=== PATIENT | male | born 1965 | race Caucasian/White ===

== ENCOUNTER → 2021-10-10 06:57 | Outpatient (CLI) | payer OTHER, SELFPAY ==
--- NOTE | ~2021-10-10 | MR_ITS ---
EXAMINATION: MR cervical spine wo con DATE: 10/10/2021 07:39 INDICATION: Neck pain TECHNIQUE: Magnetic resonance imaging (MRI) of the cervical spine was performed without intravenous c ontrast. Sequences included sagittal T2-weighted FSE, sagittal T2-weighted FS FSE, sagittal T1-weight ed FSE, axial MERGE and axial T2-weighted FSE. COMPARISON: None FINDINGS: Slight reversal of the normal cervical lordosis. No spondylolisthesis. Vertebral body heights are nor mal. Moderate disc height loss with fibrofatty degenerative endplate changes at C6-C7. Mild disc heig ht loss at C5-C6. Mild disc desiccation without disc height loss at C2-C3 through C4-C5 and at T1-T2. T1 hyperintense hemangioma at the T1 vertebral body. Bone marrow signal intensity is otherwise kimberly l. Cord signal intensity is normal. Large mucous retention cyst in the right maxillary sinus. Cervica l soft tissues are unremarkable. The following disc levels are specifically discussed: C2-C3: The disc does not extend beyond the endplate margin. There is mild bilateral uncovertebral donita nt osteoarthritis. There is moderate bilateral facet joint osteoarthritis. There is mild bilateral ne ural foraminal stenosis. There is no central canal stenosis. C3-C4: The disc does not extend beyond the endplate margin. There is mild bilateral uncovertebral donita nt osteoarthritis. There is mild bilateral facet joint osteoarthritis. There is mild bilateral neural foraminal stenosis. There is no central canal stenosis. C4-C5: The disc does not extend beyond the endplate margin. There is mild right and mild to moderate left uncovertebral joint osteoarthritis. There is mild to moderate bilateral facet joint osteoarthrit is. There is mild left and moderate right neural foraminal stenosis. There is central canal stenosis. C5-C6: The disc does not extend beyond the endplate margin. There is mild to moderate right and moder ate left uncovertebral joint osteoarthritis. There is mild bilateral facet joint osteoarthritis. Ther e is mild left and mild to moderate right neural foraminal stenosis. There is no central canal stenos is. C6-C7: The disc does not extend beyond the endplate margin. There is severe bilateral uncovertebral j oint osteoarthritis. There is mild bilateral facet joint osteoarthritis. There is mild left and mild to moderate right neural foraminal stenosis. There is no central canal stenosis. C7-T1: The disc does not extend beyond the endplate margin. There is mild bilateral uncovertebral donita nt osteoarthritis. There is moderate bilateral facet joint osteoarthritis. There is minimal bilateral neural foraminal stenosis. There is no central canal stenosis. IMPRESSION: 1. Moderate cervical spondylosis. Reviewed, dictated and finalized at location A.
== END ==
DX: M47.813 Spondylosis without myelopathy or radiculopathy, cervicothoracic region (principal); M48.03 Spinal stenosis, cervicothoracic region
CPT/HCPCS: 72141

== ENCOUNTER 2022-06-10 18:26 | Emergency (ER) | payer OTHER, SELFPAY ==
[2022-06-10 18:37] VITALS: BP 145/78; PULSE 64; RESP 16; TEMP 36.6; O2SAT 99
--- NOTE | 2022-06-10 20:56 | ED.URI ---
HPI - URI/Sore Throat General Chief Complaint: Upper Respiratory Infection Stated Complaint: Sore Throat Time Seen by Provider: 06/10/22 20:50 Source: patient, RN notes reviewed and old records reviewed Mode of arrival: ambulatory Limitations: no limitations History of Present Illness HPI Narrative: 57 year old male who presents to [facility] care with complaints of 3 day history of sore throat with no fever noted. Patient rports that he has some sinus drainage but denies any cough or headache pain. Patient has not taken any OTC medication for his symptoms. Patient reports that daughter is also experiencing sore throat. MD elicited complaint: sore throat and rhinorrhea Onset (ago): day(s) (3) Able to tolerate fluids by mouth: Yes Treatments prior to arrival: none Related Data Home Medications Medication Instructions Recorded Confirmed No Home Medications 06/10/22 06/10/22 Allergies Allergy/AdvReac Type Severity Reaction Status Date / Time No Known Allergies Allergy Verified 06/10/22 19:42 Review of Systems Review of Systems: CONSTITUTIONAL: Denies malaise, chills, sweats, or fever. EYES: Denies visual changes, redness, or discharge. ENT: Reports rhinorrhea, congestion,no sinus pain, no otalgia positive for sore throat. CARDIOVASCULAR: Denies chest pain, palpitations, or edema. RESPIRATORY: Reports no cough.? Denies dyspnea. GASTROINTESTINAL: Denies abdominal pain, nausea, vomiting, diarrhea SKIN: Denies rash or itching. MUSCULOSKELETAL: Denies myalgia. NEUROLOGIC: Denies headache. All systems reviewed & are unremarkable except as noted in HPI and below PMFSH Social History Social History (Updated 06/14/22 @ 11:00 by Indira Tiwari NP) Smoking status: Never smoker Alcohol intake: current Alcohol use details: rare Substance use: never Living arrangements: with family Gender identity (if verbalized by the patient): Male Comments At time of signature, agree with nursing past medical, surgical, social and family history. There is no relevant family history pertinent to the presenting complaint Exam Narrative: GENERAL: Well-appearing, well-nourished, and in no acute distress. HEAD: Normocephalic EYES: PERRLA, conjunctivae clear ENT: Nares clear, turbinates edematous and erythematous, clear discharge. Mucous membranes moist. TM pearly flores with dull light reflex bilaterally; no tragal tenderness. Oropharynx erythematous without lesions. Tonsils red,not enlarged and without exudate, no drooling, no hoarseness, no trismus, uvula midline.some post nasal drainage NECK: Supple. No lymphadenopathy CHEST: Clear to auscultation, breath sounds equal. No wheezing, rhonchi, rales, or stridor. No respiratory distress, speaks in full sentences.SAO2 99% on room air HEART: Regular rate and rhythm. No murmur heard. SKIN: Warm, dry, no rash. NEURO: Alert and oriented x3. PSYCH: Normal mood and affect Course Course Emergency Course: Patient is aware of diagnosis, understands and agrees to treatment plan.? Anticipatory guidance given.? Patient agrees to follow-up as directed and is aware of reasons to seek care at the emergency department. Portions of this record may have been created with voice recognition software Level of Care: Express Care Visit Vital Signs Vital signs: Vital Signs Temperature 36.6 C 06/10/22 18:37 Pulse Rate 64 06/10/22 18:37 Respiratory Rate 16 06/10/22 18:37 Blood Pressure 145/78 H 06/10/22 18:37 Pulse Oximetry 99 06/10/22 18:37 Oxygen Delivery Room Air 06/10/22 18:37 Temperature 36.6 C 06/10/22 18:37 Pulse Rate 64 06/10/22 18:37 Respiratory Rate 16 06/10/22 18:37 Blood Pressure 145/78 H 06/10/22 18:37 Pulse Oximetry 99 06/10/22 18:37 Oxygen Delivery Room Air 06/10/22 18:37 Reviewed MDM - URI/Sore Throat MDM Narrative Medical decision making narrative: Differential diagnosis considered: Vickers virus, str
== END 2022-06-10 21:00 | disposition home or self-care (01) ==
PROVIDERS: Emergency Provider Registered Nurse; PCP Physician Assistant
DX: J06.9 Acute upper respiratory infection, unspecified (principal); J02.9 Acute pharyngitis, unspecified
CPT/HCPCS: 87081; 87880; 99203; G0463

== ENCOUNTER 2024-03-15 12:46 | Emergency (ER) | payer OTHER, SELFPAY ==
--- NOTE | ~2024-03-15 | XR_ITS ---
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 RESULT: Lines, tubes, and devices: None. Lungs and pleura: Clear. Cardiomediastinal silhouette: Calcified lymph node, otherwise unremarkable. Other: No acute osseous or upper abdominal finding. Presumed chronic or physiologic mild anterior we dge deformity at L1. IMPRESSION: No acute cardiopulmonary process. Reviewed, dictated and finalized at location K. A THEORIST AND AUTHOR OF
[2024-03-15 12:58] VITALS: BP 165/91; PULSE 61; RESP 16; TEMP 37.2; O2SAT 99
--- NOTE | 2024-03-15 14:44 | ED.GENADULT ---
HPI - General Adult General Chief complaint: Upper Respiratory Infection Stated complaint: Sore Throat/Congestion/Cough Source: patient Mode of arrival: ambulatory Limitations: no limitations History of Present Illness HPI narrative: Patient presents for evaluation of sick symptoms for last week. Symptoms include sore throat, nasal congestion, thick green nasal drainage, and productive cough of green sputum. No fever, chills, nausea, vomiting or diarrhea. No recent sick contacts to his knowledge. He does not smoke. He tried taking DayQuil, NyQuil and other OTC cough and cold medications for his symptoms. Related Data Home Medications ?Medication ?Instructions ?Recorded ?Confirmed ?Last Taken ?Type No Home Medications 06/10/22 06/10/22 Unknown History Allergies Allergy/AdvReac Type Severity Reaction Status Date / Time No Known Allergies Allergy Verified 03/15/24 14:01 Review of Systems Review of Systems: CONSTITUTIONAL: Denies fever, chills, or sweats. EYES: Denies visual changes, redness, or discharge. ENT: Reports sinus congestion, green nasal drainage and sore throat.. CARDIOVASCULAR: Denies chest pain, palpitations, or edema. RESPIRATORY: Reports cough. Denies shortness of breath GASTROINTESTINAL: Denies abdominal pain, nausea, vomiting, or diarrhea. GENITOURINARY: Denies dysuria or hematuria. SKIN: Denies rash or itching. MUSCULOSKELETAL: Denies back pain, joint pain, or myalgia. NEUROLOGIC: Denies headache, numbness, dizziness, or weakness. PSYCHIATRIC: Denies anxiety or depression. PMFSH Past Medical History Medical History No pertinent past medical history Surgical History Surgical History No pertinent past surgical history Family History Family History (Updated 03/15/24 @ 14:53 by MARY Portillo, ) Mother Family history non-contributory Social History Social History Smoking status: Never smoker Alcohol intake: current Alcohol use details: rare Substance use: never Living arrangements: with family Gender identity (if verbalized by the patient): Male Exam Narrative: GENERAL: Well-appearing, well-nourished, and in no acute distress. HEAD: Normocephalic, atraumatic. EYES: PERRLA and EOMI. ENT: Nares clear, no rhinorrhea or epistaxis. Mucous membranes moist. Oropharynx without tonsillar hypertrophy exudate or other lesions. Bilateral TMs pearly flores nonbulging NECK: Supple. No adenopathy or masses. No carotid bruits or JVD CHEST: Clear to auscultation. No respiratory distress. No wheezes rales or rhonchi HEART: Regular rate and rhythm. No murmur heard. Normal peripheral pulses. ABDOMEN: Soft, nontender, nondistended, normal active bowel sounds. EXTREMITIES: Normal range of motion. No edema. SKIN: Warm, dry, no rash. NEURO: No focal deficits. Alert and oriented x3. PSYCH: Normal mood and affect. Course Course Emergency Course: This is a 58-year-old male who presented for evaluation of sick symptoms. Chest x-ray was normal. He meets criteria for bacterial sinusitis. Will discharge with Augmentin. Increase hydration. [id number] agents for symptom management. Follow up with primary provider. Go to the ER for worsening symptoms. Patient in agreement with plan of care. Level of Care: Express Care Visit Vital Signs Vital signs: Vital Signs Temperature 37.2 C 03/15/24 12:58 Pulse Rate 61 03/15/24 12:58 Respiratory Rate 16 03/15/24 12:58 Blood Pressure 165/91 H 03/15/24 12:58 Pulse Oximetry 99 03/15/24 12:58 Oxygen Delivery Room Air 03/15/24 12:58 Temperature 37.2 C 03/15/24 12:58 Pulse Rate 61 03/15/24 12:58 Respiratory Rate 16 03/15/24 12:58 Blood Pressure 165/91 H 03/15/24 12:58 Pulse Oximetry 99 03/15/24 12:58 Oxygen Delivery Room Air 03/15/24 12:58 Medical Decision Making Vital Signs Vital Signs: Vital Signs Temperature 37.2 C 03/15/24 12:58 Pulse Rate 61 03/15/24 12:58 Respiratory Rate 16 03/15/24 12:58 Blood Pressure 165/91 H 03/15/24 12:58 Pulse Oximetry 99 03/15/24 12:58 Oxygen Delivery Room Air 03/15/24 12:58 Temperature 37.2 C 03/15/24 12:58 Pulse Rate 61 03/15/24 12:58 Respiratory Rate 16 03/15/24 12:58 Blood Pressure 165/91 H 03/15/24 12:58 Pulse Oximetry 99 03/15/24 12:58 Oxygen Delivery Room Air 03/15/24 12:58 Imaging Data Radiologist's impression: EXAMINATION: XR chest 2V Exam Date/Time: 03/15/2024 14:40 [employer]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 RESULT: Lines, tubes, and devices: None. Lungs and pleura: Clear. Cardiomediastinal silhouette: Calcified lymph node, otherwise unremarkable. Other: No acute osseous or upper abdominal finding. Presumed chronic or physiologic mild anterior wedge deformity at L1. IMPRESSION: No acute cardiopulmonary process. Discharge Plan Discharge Clinical Impression: Sinusitis Patient Disposition: Home, Self-Care Condition: Stable Instructions: Antibiotic Form, Sinusitis (ED) Patient Language: Belarusian Prescriptions: New amoxicillin-pot clavulanate 875-125 mg tablet 1 tablet PO Q12H Qty: 20 0RF No Action No Home Medications Follow-up/Referrals: Ruddy,DYLAN Mejia [Primary Care Provider] - Time of Disposition: 15:11
--- OUTSIDE RECORDS SUMMARY | 2024-03-22 10:18 | XMS_ITS | Clinical Summary ---
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 20 Tab 10/06/2016 Active Family History Medical History Relation Name Comments Hypertension Father No Known Problems Mother Relation Name Status Comments Father Alive Mother Alive Social History Tobacco Use Types Packs/Day Years Used Date Smoking Tobacco: Never Alcohol Use Standard Drinks/Week Comments No 0 (1 standard drink = 0.6 oz pur e alcohol) Sex and Gender Information Value Date Recorded Sex Assigned at Not on file Legal Sex Male 8:43 PM CDT Gender Identity Not on file Sexual Orientation Not on file Last Filed Vital Signs Vital Sign Reading Time Taken Comments Blood Pressure 122/72 10/06/2016 10:03 AM CDT Pulse 62 10/06/2016 10:03 AM CDT Temperature 36 ??C (96.8 ??F) 10/06/2016 10:03 AM CDT Respiratory Rate 18 10/06/2016 10:03 AM CDT Oxygen Saturation 98% 10/06/2016 10:03 AM CDT Inhaled Oxygen Concentration - - Weight 84 kg (185 lb 3.2 oz) 10/06/2016 10:03 AM CDT Height 175.3 cm (5' 9 ) 10/06/2016 10:03 AM CDT Body Mass Index 27.35 10/06/2016 10:03 AM CDT Plan of Treatment Health Maintenance Due Date Last Done Comments Hepatitis C Virus (HCV) Screening 1965 TdaP Immunization 1965 Hepatitis B Immunization (1 of 3 - 19+ 3-dose series) 1984 Colonoscopy 2010 Colorectal Cancer Screening 2010 Cologuard 2015 Immunochemical Fecal Occult Blood 2015 Pneumococcal Immunization (5 0+ years) (1 of 1 - PCV) 2015 Zoster Immunization (1 of 2) 2015 PSA Discussion 2020 Influenza Immunization (#1) 2023 SARS-COV-2 Immunization (1 - season) 2023 Respiratory Syncytial Virus (RSV) Immunization (Adult) (1 - 1-dose 75+ series) 2040 Meningococcal Immunization (ACWY) Aged Out No longer eligible based on patient's age to complete this topic Pneumococcal Immunization Combined Aged Out No longer eligible based on patient's age to complete this topic Rotavirus Immunization Aged Out No lo nger eligible based on patient's age to complete this topic Insurance Care Teams Piped Pocket Machine Operator Relationship Specialty Start Date End Date Provider, None [place] PCP - General 08/28/20
--- OUTSIDE RECORDS SUMMARY | 2024-03-22 10:18 | XMS_ITS | Data Portability ---
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 Plan of Treatment Reminders Order Date Submit Date Provider Last Modified By Organization Details Last Modified Time Details Appointments None recorded. Lab CBC 2021 022 [place] EBONY, [facility], [facility] [address], [place], [address], 2 09:14:25 CMP, serum or plasma 2021 022 TYNAN EBONY, [address] [place] [address], [address], [place], [address], 2 09:14:24 lipid panel, serum 2021 022 TYNAN LABDURAN, [facility], [facility] [address], [place], [address], 2 09:14:25 CMP, serum or plasma 2023 024 TYNAN LABCO, [address] [place] [address], [address], [place], [address], 4 09:14:49 lipid panel, serum 2023 024 [facility] [address] [place] [address], [address], [place], [address], 4 09:14:48 Referral hand surgeon referral 2023 024 debbie Rose MD, 2 [facility] , [address], [address], 4 11:53:17 Procedures None recorded. Surgeries None recorded. Imaging None recorded. Medication Orders Cipro 500 mg tablet 2021 022 [facility], [address] [place] [address], [address], 4 16:32:44 metronidaz ole 500 mg tablet 2021 022 [facility], [address] [place] [address], [address], 4 16:32:41 Medrol (Basilio) 4 mg tablets in a dose pack 2022 023 [facility], [address] [place] [address], [address], 4 16:03:32 Depo-Medro l 80 mg/mL suspension for injection 2022 023 [facility] Not available 4 16:03:34 amoxicilli n 875 mg tablet 2023 024 [facility], [address] [place] [address], [address], 4 16:32:46 Medrol (Basilio) 4 mg tablets in a dose pack 2023 024 [facility], [address] [place] [address], [address], 4 16:46:33 Patient TargetsNo targets recorded. Patient Instructions Encounter Date Encounter Id Patient Instructions Last Modified By Organization Details Last Modified Time 07/16/2021 [id number] learning about healthy weight jnanney Not available 07/16/2021 17:21:22 diverticulitis: care instructions jnanney Not available 07/16/2021 17:21:23 learning about diverticulosis and diverticulitis jnanney Not available 07/16/2021 17:21:23 10/09/2022 [id number] A healthy lifestyle: care instructions jnanney Not available 10/09/2022 16:41:38 04/27/2023 [id number] A healthy lifestyle: care instructions jnanney Not available 04/27/2023 16:17:55 06/21/2023 [id number] A healthy lifestyle: care instructions jnanney Not available 06/21/2023 16:45:45 Reason for Referral Hand Surgeon Referral for Tr igger thumb of right hand Referring Physician: Carlos Fox, Family Medicine, Encounter Date: 06/21/2023 Results Created Date Observation Date Name Description Value Unit Range Abnormal Flag Note LastModifiedBy Organization Detail LastModifiedTime 09/20/19 22 09/20/2021 COMP. METAB OLIC PANEL (14) glucose 73 mg/dL 65-99 Not Available [facility] ([facility]) [address] [place], [address], 09/20/2021 09:14:24 09/20/19 22 09/20/2021 COMP. METAB OLIC PANEL (14) BUN 13 mg/dL 6-24 Not Available [facility] ([facility]) [address] [place], [address], 09/20/2021 09:14:24 09/20/19 22 09/20/2021 COMP. METAB OLIC PANEL (14) creatinine 1.20 mg/dL 0.76-1 .27 Not Available [facility] ([facility]) [address] [place], [address], 09/20/2021 09:14:24 09/20/19 22 09/20/2021 COMP. METAB OLIC PANEL (14) eGFR 71 mL/mi n/1.7 3 >59 Not Available [facility] ([facility]) [address] [place], [address], 09/20/2021 09:14:24 09/20/19 22 09/20/2021 COMP. METAB OLIC PANEL (14) BUN/creatini ne ratio 11 9-20 Not Available [facility] ([facility]) [address] [facility], [place], [address], 09/20/2021 09:14:24 09/20/19 22 09/20/2021 COMP. METAB OLIC PANEL (14) sodium 143 mmol/ L 134-14 4 Not Available [facility] ([facility]) [address] [facility] [place], [address], 09/20/2021 09:14:24 09/20/19 22 09/20/2021 COMP. METAB OLIC PANEL (14) potassium 5.0 mmol/ L 3.5-5. 2 Not Available [facility] ([facility]) [address] [facility] [place], [address], 09/20/2021 09:14:24 09/20/19 22 09/20/2021 COMP. METAB OLIC PANEL (14) chloride 103 mmol/ L 96-106 Not Available [facility] ([facility]) [address] [facility] [place], [address], 09/20/2021 09:14:24 09/20/19 22 09/20/2021 COMP. METAB OLIC PANEL (14) carbon dioxide, total 28 mmol/ L 20-29 Not Available [facility] ([facility]) [address] [facility] [place], [address], 09/20/2021 09:14:24 09/20/19 22 09/20/2021 COMP. METAB OLIC PANEL (14) calcium 9.4 mg/dL 8.7-10 .2 Not Available [facility] ([facility]) [address] [facility] [place], [address], 09/20/2021 09:14:24 09/20/19 22 09/20/2021 COMP. METAB OLIC PANEL (14) protein, total 7.1 g/dL 6.0-8. 5 Not Available [facility] ([facility]) [address] [place], [address], 09/20/2021 09:14:24 09/20/19 22 09/20/2021 COMP. METAB OLIC PANEL (14) albumin 4.5 g/dL 3.8-4. 9 Not Available [facility] ([facility]) [address] [place], [address], 09/20/2021 09:14:24 09/20/19 22 09/20/2021 COMP. METAB OLIC PANEL (14) globulin, total 2.6 g/dL 1.5-4. 5 Not Available [facility] ([facility]) [address] [place], [address], 09/20/2021 09:14:24 09/20/19 22 09/20/2021 COMP. METAB OLIC PANEL (14) A/G ratio 1.7 1.2-2. 2 Not Available [facility] ([facility]) [address] [place], [address], 09/20/2021 09:14:24 09/20/19 22 09/20/2021 COMP. METAB OLIC PANEL (14) bilirubin, total 0.4 mg/dL 0.0-1. 2 Not Available [facility] ([facility]) [address] [place], [address], 09/20/2021 09:14:24 09/20/19 22 09/20/2021 COMP. METAB OLIC PANEL (14) alkaline phosphatase 53 IU/L 44-121 Not Available [facility] ([facility]) [address] [place], [address], 09/20/2021 09:14:24 09/20/19 22 09/20/2021 COMP. METAB OLIC PANEL (14) AST (SGOT) 16 IU/L 0-40 Not Available [facility] ([facility]) [address] [facility], [place], [address], 09/20/2021 09:14:24 09/20/19 22 09/20/2021 COMP. METAB OLIC PANEL (14) ALT (SGPT) 17 IU/L 0-44 Not Available [facility] ([facility]) [address] [facility], [place], [address], 09/20/2021 09:14:24 09/20/19 22 09/20/2021 CBC, PLATE LET, NO DIFFE RENTI AL WBC 5.8 x10e3 /uL 3.4-10 .8 Not Available [facility] ([facility]) [address] [facility], [place], [address], 09/20/2021 09:14:24 09/20/19 22 09/20/2021 CBC, PLATE LET, NO DIFFE RENTI AL RBC 5.15 x10e6 /uL 4.14-5 .80 Not Available [facility] ([facility]) [address] [facility], [place], [address], 09/20/2021 09:14:24 09/20/19 22 09/20/2021 CBC, PLATE LET, NO DIFFE RENTI AL hemoglobin 14.8 g/dL 13.0-1 7.7 Not Available [facility] ([facility]) [address] [facility], [place], [address], 09/20/2021 09:14:24 09/20/19 22 09/20/2021 CBC, PLATE LET, NO DIFFE RENTI AL hematocrit 43.3 % 37.5-5 1.0 Not Available [facility] ([facility]) [address] [facility], [place], [address], 09/20/2021 09:14:24 09/20/19 22 09/20/2021 CBC, PLATE LET, NO DIFFE RENTI AL MCV 84 fL 79-97 Not Available [facility] ([facility]) [address] [facility], [place], [address], 09/20/2021 09:14:24 09/20/19 22 09/20/2021 CBC, PLATE LET, NO DIFFE RENTI AL MCH 28.7 pg 26.6-3 3.0 Not Available [facility] ([facility]) [address] [facility], [place], [address], 09/20/2021 09:14:24 09/20/19 22 09/20/2021 CBC, PLATE LET, NO DIFFE RENTI AL MCHC 34.2 g/dL 31.5-3 5.7 Not Available [facility] ([facility]) [address] [facility], [place], [address], 09/20/2021 09:14:24 09/20/19 22 09/20/2021 CBC, PLATE LET, NO DIFFE RENTI AL RDW 13.9 % 11.6-1 5.4 Not Available [facility] ([facility]) [address] [facility], [place], [address], 09/20/2021 09:14:24 09/20/1909/20/2021 CBC, PLATE LET, NO DIFFE RENTI AL platelets 223 x10e3 /uL 150-45 0 Not Available [facility] ([facility]) [address] 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, [place], [address], 09/20/2021 09:14:24 09/20/19 22 09/20/2021 LIPID PANEL cholesterol, total 236 mg/dL 100-19 9 above high normal Not Available [facility] ([facility]) [address] [place], [address], 09/20/2021 09:14:25 09/20/19 22 09/20/2021 LIPID PANEL triglyceride s 345 mg/dL 0-149 above high normal Not Available [facility] ([facility]) [address] [facility] [place], [address], 09/20/2021 09:14:25 09/20/19 22 09/20/2021 LIPID PANEL HDL cholesterol 36 mg/dL >39 below low normal Not Available [facility] ([facility]) [address] [facility] [place], [address], 09/20/2021 09:14:25 09/20/19 22 09/20/2021 LIPID PANEL VLDL cholesterol elizabet 63 mg/dL 5-40 above high normal Not Available [facility] ([facility]) [address] [facility] [place], [address], 09/20/2021 09:14:25 09/20/19 22 09/20/2021 LIPID PANEL LDL chol calc ([facility]) 137 mg/dL 0-99 above high normal Not Available [facility] ([facility]) [address] [facility] 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 [place], [address], 09/20/2021 09:14:25 09/20/19 22 09/20/2021 CARDI OVASC ULAR REPOR T interpretati on Note Suppl emjazmine al repor t is avail able. Not Available [facility] ([facility]) [address] [facility] [place], [address], 09/20/2021 09:14:26 09/20/19 22 09/20/2021 CARDI OVASC ULAR REPOR T pdf . Not Available [facility] ([facility]) [address] [place], [address], 09/20/2021 09:14:26 04/27/19 24 04/28/2023 LIPID PANEL cholesterol, total 211 mg/dL 100-19 9 above high normal Not Available [address], [address], 04/28/2023 09:14:48 04/27/19 24 04/28/2023 LIPID PANEL triglyceride s 457 mg/dL 0-149 above high normal Not Available [address], [address], 04/28/2023 09:14:48 04/27/19 24 04/28/2023 LIPID PANEL HDL cholesterol 28 mg/dL >39 below low normal Not Available [address], [address], 04/28/2023 09:14:48 04/27/19 24 04/28/2023 LIPID PANEL VLDL cholesterol elizabet 78 mg/dL 5-40 above high normal Not Available [address], [address], 04/28/2023 09:14:48 04/27/19 24 04/28/2023 LIPID PANEL LDL chol calc (nih) 105 mg/dL 0-99 above high normal Not Available [address], [address], 04/28/2023 09:14:48 04/27/19 24 04/28/2023 COMP. METAB OLIC PANEL (14) glucose 79 mg/dL 70-99 Not Available [address], [address], 04/28/2023 09:14:49 04/27/19 24 04/28/2023 COMP. METAB OLIC PANEL (14) BUN 13 mg/dL 6-24 Not Available [address], [address], 04/28/2023 09:14:49 04/27/19 24 04/28/2023 COMP. METAB OLIC PANEL (14) creatinine 1.08 mg/dL 0.76-1 .27 Not Available [address], [address], 04/28/2023 09:14:49 04/27/19 24 04/28/2023 COMP. METAB OLIC PANEL (14) eGFR 80 mL/mi n/1.7 3 >59 Not Available [address], [address], 04/28/2023 09:14:49 04/27/19 24 04/28/2023 COMP. METAB OLIC PANEL (14) BUN/creatini ne ratio 12 9-20 Not Available [address], [address], 04/28/2023 09:14:49 04/27/19 24 04/28/2023 COMP. METAB OLIC PANEL (14) sodium 141 mmol/ L 134-14 4 Not Available [address], [address], 04/28/2023 09:14:49 04/27/19 24 04/28/2023 COMP. METAB OLIC PANEL (14) potassium 4.4 mmol/ L 3.5-5. 2 Not Available [address], [address], 04/28/2023 09:14:49 04/27/19 24 04/28/2023 COMP. METAB OLIC PANEL (14) chloride 103 mmol/ L 96-106 Not Available [address], [address], 04/28/2023 09:14:49 04/27/19 24 04/28/2023 COMP. METAB OLIC PANEL (14) carbon dioxide, total 25 mmol/ L 20-29 Not Available [address], [address], 04/28/2023 09:14:49 04/27/19 24 04/28/2023 COMP. METAB OLIC PANEL (14) calcium 9.3 mg/dL 8.7-10 .2 Not Available [address], [address], 04/28/2023 09:14:49 04/27/19 24 04/28/2023 COMP. METAB OLIC PANEL (14) protein, total 7.1 g/dL 6.0-8. 5 Not Available [address], [address], 04/28/2023 09:14:49 04/27/19 24 04/28/2023 COMP. METAB OLIC PANEL (14) albumin 4.6 g/dL 3.8-4. 9 Not Available [address], [address], 04/28/2023 09:14:49 04/27/19 24 04/28/2023 COMP. METAB OLIC PANEL (14) globulin, total 2.5 g/dL 1.5-4. 5 Not Available [address], [address], 04/28/2023 09:14:49 04/27/19 24 04/28/2023 COMP. METAB OLIC PANEL (14) A/G ratio 1.8 1.2-2. 2 Not Available [address], [address], 04/28/2023 09:14:49 04/27/19 24 04/28/2023 COMP. METAB OLIC PANEL (14) bilirubin, total 0.3 mg/dL 0.0-1. 2 Not Available [address], [address], 04/28/2023 09:14:49 04/27/19 24 04/28/2023 COMP. METAB OLIC PANEL (14) alkaline phosphatase 50 IU/L 44-121 Not Available [address], [address], 04/28/2023 09:14:49 04/27/19 24 04/28/2023 COMP. METAB OLIC PANEL (14) AST (SGOT) 19 IU/L 0-40 Not Available [address], [address], 04/28/2023 09:14:49 04/27/19 24 04/28/2023 COMP. METAB OLIC PANEL (14) ALT (SGPT) 18 IU/L 0-44 Not Available [address], [address], 04/28/2023 09:14:49 04/27/19 24 04/28/2023 CARDI OVASC ULAR REPOR T interpretati on Note Suppl emjazmine al repor t is avail able. Not Available [address], [address], 04/28/2023 09:14:50 04/27/19 24 04/28/2023 CARDI OVASC ULAR REPOR T pdf . Not Available [address], [address], 04/28/2023 09:14:50 03/15/1903/15/2024 XR, chest No observ ation record ed. [email or web address] Bueno [facility] [address], [place], [address], 03/16/2024 08:42:05 Result Notes None recorded. Problems Name Problem SNOMED Code Status Onset Date Resolution Date Notes Provider Name and Address Organization Details Recorded Time Left lower quadrant pain 064885525 Active Tasha Tapia MA null, [facility] 6 16:28:26 Contact dermatitis 11230920 Active Tasha Tapia MA null, [facility] 16:28:26 Acute pharyngitis 273503699 Active BRIANNA Claudio, [facility] 16:28:26 Dermatophytosi s 24727895 Active Carlos Fox PA-C Attn: Ga alvarez,[address] [facility], [place], [address], [facility] 16:37:28 Problem Notes None recorded. Procedures Surgical History Date Name Laterality Status Provider Name and Address Organization Details Recorded Time Knee Surgery completed Rhiannon Stephens MA [facility] 05/10/2014 14:54:26 Tonsillectomy completed Rhiannon Stephens MA [facility] 05/10/2014 14:54:26 Vasectomy completed Rhiannon Stephens MA [facility] 05/10/2014 14:54:26 Imaging Results Imaging Date Name Status LastModified by Organiz ation Details LastModified Time 03/15/2024 XR, chest completed debbie Bueno [facility] [address], [place], [address], 03/16/2024 08:42:05 Procedure Notes None recorded. Medical Equipment None Reported. Allergies No known drug allergies Medications Name Sig Start Date Stop Date Status Note LastModified by Organization Details LastModified Time cyclobenzap rine 10 mg tablet 08/20 completed Not Available Not Available Not Available amoxicillin 500 mg capsule TAKE 1 CAPSULE BY MOUTH EVERY 8 HOURS FOR 7 DAYS 09/18 completed Not Available Not Available Not Available prednisone 10 mg tablet TAKE 3 TABLETS BY MOUTH ONCE DAILY FOR 5 DAYS THEN 6 ONCE DAILY FOR 5 DAYS THEN 3 ONCE DAILY FOR 5 DAYS 10/09 completed Not Available Not Available Not Available ketoconazol e 200 mg tablet Take 1 tablet every day by oral route for 14 days. 02/09 completed Not Available Not Available Not Available ibuprofen 800 mg tablet TAKE 1 TABLET BY MOUTH EVERY 8 HOURS NEEDED 09/18 completed Not Available Not Available Not Available hydrocodone 5 mg-acetamin ophen 325 mg tablet 08/20 completed Not Available Not Available Not Available Keflex 500 mg capsule Take 1 capsule every 8 hours by oral route for 10 days. 08/23 completed Not Available Not Available Not Available prednisone 20 mg tablet TAKE 3 TABLETS BY MOUTH ONCE DAILY DIRECTED FOR 5 DAYS 09/18 completed Not Available Not Available Not Available penicillin V potassium 500 mg tablet 08/20 completed Not Available Not Available Not Available metronidazo le 500 mg tablet TAKE 1 TABLET BY MOUTH EVERY 8 HOURS FOR 10 DAYS 06/20 completed Not Available Not Available Not Available ciprofloxac in 500 mg tablet TAKE 1 TABLET BY MOUTH EVERY 12 HOURS FOR 10 DAYS 06/20 completed Not Available Not Available Not Available Depo-Medrol 80 mg/mL suspension for injection Take 1 mL by injection route. 04/27 completed Not Available Not Available Not Available amoxicillin 875 mg tablet TAKE 1 TABLET BY MOUTH EVERY 12 HOURS FOR 10 DAYS 06/20 completed Not Available Not Available Not Available ciprofloxac in 0.3 % eye drops 11/17 completed Not Available Not Available Not Available tobramycin 0.3 % eye drops INSTILL 2 DROPS INTO THE LEFT EYE EVERY 4 HOURS WHILE AWAKE X 5 DAYS 10/09 completed Not Available Not Available Not Available diclofenac sodium 75 mg tablet,lucho yed release 08/20 completed Not Available Not Available Not Available ibuprofen 600 mg tablet 08/20 completed Not Available Not Available Not Available cefuroxime axetil 500 mg tablet 08/23 completed Not Available Not Available Not Available methylpredn isolone 4 mg tablets in a dose pack TAKE BY MOUTH DIRECTED ON INSIDE OF PACKAGE active Not Available Not Available No t Available fenofibrate 160 mg tablet Take 1 tablet every day by oral route for 90 days. 06/20 completed Not Available Not Available Not Available Flucelvax Quad 60 mcg (15 mcg x 4)/0.5 mL intramuscul ar susp 09/18 completed Not Available Not Available Not Available Vitals Date Recorded Body height Body temperature Oxygen saturation Oxygen saturation in Arterial blood by Pulse oximetry Heart rate Body mass index (BMI) Body weight Systolic blood pressure Diastolic blood pressure Provider Name and Address Organization Details Last Updated DateTime 2 177.8 cm 97.4 [degF] 98 % 98 % 81 /min 28.2 kg/m2 92352.3 6 g 150 mm[Hg] 88 mm[Hg] Roopa bentley [place] [facility] 2 13:54:10 Date Recorded Body height Body mass index (BMI) Body weight Body temperature Oxygen saturation Oxygen saturation in Arterial blood by Pulse oximetry Heart rate Systolic blood pressure Diastolic blood pressure Provider Name and Address Organization Details Last Updated DateTime 2 177.8 cm 28.1 kg/m2 70441.1 g 97.5 [degF] 100 % 100 % 78 /min 140 mm[Hg] 90 mm[Hg] Kat Ovalles MA [facility] 2 16:52:39 Date Recorded Body height Body mass index (BMI) Body weight Respiratory rate Oxygen saturation Oxygen saturation in Arterial blood by Pulse oximetry Heart rate Systolic blood pressure Diastolic blood pressure Provider Name and Address Organization Details Last Updated DateTime 3 177.8 cm 29.1 kg/m2 76964.8 1 g 16 /min 99 % 99 % 82 /min 133 mm[Hg] 82 mm[Hg] Teressa Chaparro MA [facility] 3 16:25:29 Date Recorded Body height Body mass index (BMI) Body weight Oxygen saturation Oxygen saturation in Arterial blood by Pulse oximetry Heart rate Systolic blood pressure Diastolic blood pressure Provider Name and Address Organization Details Last Updated DateTime 4 177.8 cm 30 kg/m2 47180.5 1 g 97 % 97 % 73 /min 153 mm[Hg] 96 mm[Hg] Iris Joiner MA [facility] 4 16:05:03 Date Recorded Body height Body mass index (BMI) Body weight Oxygen saturation Oxygen saturation in Arterial blood by Pulse oximetry Heart rate Systolic blood pressure Diastolic blood pressure Provider Name and Address Organization Details Last Updated DateTime 4 177.8 cm 29.5 kg/m2 54470.8 4 g 98 % 98 % 74 /min 134 mm[Hg] 82 mm[Hg] Iris Joiner MA [place] - [facility] 16:34:27 Social History Question Answer Notes LastModified by Organizat ion Details LastModified Time Tobacco Smoking Status Former Smoker BRIANNA Kennedy, [place] - [facility] 05/10/2014 14:54:26 What Is Your Level Of Alcohol Consumption? None Information not available 05/26/2018 Are You Blind Or Do You Have Difficulty Seeing? No Information n ot available 09/18/2020 What Is Your Level Of Caffeine Consumption? Moderate Information not available 05/26/2018 In The 14 Days Before Symptom Onset, Have You Had Close Contact With A Laboratory-confirm ed COVID-19 While That Case Was Ill? No Information n ot available 09/18/2020 In The 14 Days Before Symptom Onset, Have You Had Close Contact With A Person Who Is Under Investigation For COVID-19 While That Person Was Ill? No Information not available 09/18/2020 Have You Been To An Area Known To Be High Risk For COVID-19? No Information not available 09/18/2020 Are You Currently Employed? Yes Information not available 09/18/2020 Are You Deaf Or Do You Have Serious Difficulty Hearing? No Information not available 09/18/2020 What Type Of Diet Are You Following? REGULAR Information n ot available 05/26/2018 Which Illicit Or Recreational Drugs Have You Used? None Information not available 05/26/2018 Are There Any Guns Present In Your Home? No Information not available 09/18/2020 What Was The Date Of Your Most Recent Tobacco Screening? 06/21/2023 [email or web address] Information not available 06/21/2023 What Is Your Relationship Status? Information not available 09/18/2020 Do You Use Your Seat Belt Or Car Seat Routinely? Yes Information not available 09/18/2020 Are You Sexually Active? Yes [email or web address] Information not available 10/09/2022 Do You Have Smoke And Carbon Monoxide Detectors In Your Home? Yes Information not available 09/18/2020 Are You Passively Exposed To Smoke? No Information no t available 09/18/2020 Do You Feel Stressed (tense, Restless, Nervous, Or Anxious, Or Unable To Sleep At Night)? [id number] Information not available 09/18/2020 Do You Use Any Illicit Or Recreational Drugs? No Information not available 09/18/2020 Has Tobacco Cessation Counseling Been Provided? No Information not available 07/16/2021 How Many Years Have You Smoked Tobacco? 6 [email or web address] Information not available 05/10/2014 Do You Or Have You Ever Used Any Other Forms Of Tobacco Or Nicotine? No Information not available 07/16/2021 Sex: Male Functional Status Question Answer Note LastModified by Organization D etails LastModified Time Are you able to care for yourself? Yes Information n ot available 09/18/2020 Mental Status None recorded. Family History Nothing Reported. Medical History Condition Response Coronary Artery Disease N Other N High Blood Pressure N Atrial Fibrillation N Kidney or Bladder Problems N Thyroid Problems N GI Problems N Depression N COPD N Blood Clots N Skin Problems N Anemia N Heart Attack (MA) N Anxiety Disorder N Diabetes N Muscle, Joint, or Bone Problems Y Seizures/Epilepsy N Acid Reflux (GERD) N Cancer N Stroke N Asthma N Allergies N High Cholesterol N Hepatitis N Liver Disease N Headaches N Heart Failure N Osteoporosis N Immunizations Vaccine Type Date Status Note Provider Nam e and Address Organization Details Recorded Time Influenza, split virus, quadrivalent, preservative 6 completed Not Available [facility] 04/01/2019 02:46:39 Past Encounters Encounter ID Performer Location Encounter Start Date Encounter Closed Date Diagnosis/Indication Diagnosis SNOMED-CT Code Diagnosis ICD10 Code Diagnosis Note [id number] [facility] [address] [place] [address] 05/10/2014 14:52:41 05/10/2014 15:20:15 Left lower quadrant pain [id number] Rhiannon Stephens MA [facility] [address] [place] [address] 05/18/2014 11:50:08 05/18/2014 12:56:40 Left lower quadrant pain [id number] Rhiannon Stephens MA [facility] [address] [place] [address] 07/30/2014 14:28:48 07/30/2014 14:58:47 Contact dermatitis [id number] [facility] [address] [place] [address] 10/01/2014 15:58:14 10/01/2014 16:49:55 Acute pharyngitis [id number] Carlos Fox PA-C [facility] [address] [place] [address] 04/08/2015 16:42:36 04/08/2015 17:29:49 Left lower quadrant pain [id number] R10.32 [id number] Carlos Fox PA-C [facility] [address] [place] [address] 08/21/2015 15:43:43 08/21/2015 16:40:49 Dermatophytosis 51297013 B35.9 [id number] Tasha Tapia MA [facility] [address] [place] [address] 02/20/2016 11:26:08 02/20/2016 13:36:33 Acute bacterial sinusitis 94270248 J01.90 [id number] Carlos Fox PA-C [facility] [address] [place] [address] 11/17/2016 17:34:44 11/17/2016 18:35:02 Screening for malignant neoplasm of colon 845545859 Z12.11 Tinea corporis 31700447 B35.4 [id number] Tasha Tapia MA [facility] [address] [place] [address] 01/11/2017 09:29:03 01/11/2017 11:11:18 [id number] Carlos Fox PA-C [facility] [address] [place] [address] 02/09/2017 11:23:16 02/09/2017 12:54:06 Mixed hyperlipidemia 436761069 E78.2 [id number] Tasha Tapia MA [facility] [address] [place] [address] 08/23/2017 11:15:34 08/23/2017 12:05:24 Contact dermatitis caused by urushiol from [facility] 430542137 L25.5 [id number] Carlos Fox PA-C [facility] [address] [place] [address] 05/26/2018 10:41:28 05/27/2018 14:56:12 Adult health examination 601756835 Z00.00 Screening for malignant neoplasm of prostate 482851279 Z12.5 Screening for malignant neoplasm of colon 565746880 Z12.11 Mixed hyperlipidemia 267 015623 E78.2 Acute pharyngitis 881601 003 J02.8 [id number] Carlos Fox PA-C [facility] [address] [place] [address] 09/12/2018 13:56:57 09/12/2018 15:09:13 Contact dermatitis 93187398 L23.7 Mixed hyperlipidemia 267 225911 E78.2 [id number] Carlos Fox PA-C [facility] [address] [place] [address] 09/22/2018 15:02:36 09/23/2018 12:20:27 Hyperlipidemia 19584845 E78.2 Contact de rmatitis caused by urushiol from [facility] 502970483 L25.5 [id number] Tasha Tapia [facility] [address] [place] [address] 06/26/2019 15:06:03 06/28/2019 11:26:23 Contact dermatitis 66855938 L23.7 [id number] Carlos Fox PA-C [facility] [address] [place] [address] 09/18/2020 14:51:48 09/20/2020 11:54:39 Adult health examination 850094002 Z00.00 Screening for malignant neoplasm of prostate 684549113 Z12.5 [id number] Carlos Fox PA-C [facility] [address] [place] [address] 06/27/2021 13:46:14 06/27/2021 14:22:26 Adult health examination 335841192 Z00.00 [id number] Carlos Fox PA-C [facility] [address] [place] [address] 07/16/2021 16:43:37 07/16/2021 17:37:33 Body mass index 25-29 - overweight 058295412 Z68.28 Adult [facility] examination 444895496 Z00.00 Diverticulitis 834400391 K57.92 Left lower quadrant pain 148581195 R10.32 [id number] Carlos Fox PA-C [facility] [address] [place] [address] 10/09/2022 16:18:34 10/12/2022 10:06:51 Contact dermatitis caused by urushiol from [facility] audrey 427593605 L25.5 Overweight 832689636 E66 .3 [id number] Carlos Fox PA-C [facility] [address] [place] [address] 04/27/2023 15:51:02 04/30/2023 12:38:10 Pain of ear 440753992 H92.01 Overweight 028917951 E66 .3 Mixed hyperlipidemia 267 646792 E78.2 [id number] Carlos Fox PA-C [facility] [address] [place] [address] 06/21/2023 16:28:34 07/02/2023 15:11:54 Trigger thumb of right hand [id number] 91148 M65.311 Overweight 663133621 E66 .3 Health Concerns Section Related Observation LastModified by Organization Detai ls LastModified Time None Recorded Concern Status LastModified by Organization Details LastModified Time None Recorded Advance Directives Directive None Recorded Payers Encounter Date Sequence Insurance Name Policy Number Policy Knight Covered Member ID Knight Member ID Guarantor Name 06/27/2021 1 [facility] [id number] Shi Thao [id number] [facility] 07/16/2021 1 [facility] [id number] Shi Thao [id number] Kimani Thao 10/09/2022 1 [facility] [id number] Shi Thao [id number] [facility] 04/27/2023 1 [facility] [id number] Shi Thao [id number] Kimani Thao 06/21/2023 1 [facility] [id number] Shi Thao [id number] Kimani Thao Notes Date Note Type Note Provider Name and Address Organization Details Recorded Time 06/27/2021 text/html Kimani Thao is a 56 year old male who presents for a work physical. He works in [employer]. He has no concerns about being able to perform the job. Carlos Fox PA-C Attn: [address] [place], [place], [address] [place] [address], [facility] 06/27/2021 14:15:17 07/16/2021 text/html Kimani Thao is a 56 year old male who presents for a diverticulitis flare up starting two days ago. He was diagnosed with diverticulitis in 2014. He has had 3-4 flare ups in the past, with the last flare being a few years ago. He has never had to be hospitalized. He has LLQ abdominal pain rated a 3-4/10. His pain does not change with bowel movements. He is able to move around and attended softball practice today. He states the pain is better when he is moving around than when he is sitting still. He has never had a colonoscopy. He denies diarrhea, constipation, blood or mucus in stool, dizziness, SOB, unintended weight loss. Carlos Fox PA-C Attn: [address]ing,[address] [place], [place], [address] [place] [address], [facility] 07/16/2021 17:23:39 10/09/2022 text/html poison audrey or something...[facility]... Carlos Fox PA-C Attn: Accounting,[address] [place], [place], [address] [place] [address], [facility] 10/09/2022 16:41:55 04/27/2023 text/html rt ear pain for 1 week Carlos Fox PA-C Attn: Accounting,[address] [place], [place], [address] [place] [address], [facility] 04/27/2023 16:20:17 06/21/2023 text/html rt thumb is lock ing and snapping over Carlos Fox PA-C Attn: Accounting,[address] [facility], [place], [address], [facility] 06/21/2023 16:46:55
--- OUTSIDE RECORDS SUMMARY | 2024-03-22 10:19 | XMS_ITS | Referral Summary ---
Author Organization [facility] [address] Address [address] [place] [address] Care Team Providers Care Book Critic Name Role Phone Mingo Ellison MD Primary Care Provider +1- [phone] Allergies Active Allergy Reactions Criticality Noted Date Comments Clarithromycin Stomach upset Reaction: GI problems, Medications No known medications Active Problems No known active problems Social History Tobacco Use Types Packs/Day Years Used Date Smoking Tobacco: Never Tobacco Cessation:Counseling Given: Not Answered Alcohol Use Standard Drinks/Week Comments No 0 (1 standard drink = 0.6 oz pur e alcohol) Sex and Gender Information Value Date Recorded Sex Assigned at Not on file 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 Gender Identity Not on file Sexual Orientation Not on file Last Filed Vital Signs Vital Sign Reading Time Taken Comments Blood Pressure 154/84 07/21/2023 1:11 PM CDT Pulse 64 07/21/2023 1:11 PM CDT Temperature - - Respiratory Rate - - Oxygen Saturation - - Inhaled Oxygen Concentration - - Weight 93.4 kg (206 lb) 07/21/2023 1:11 PM CDT Height 177.8 cm (5' 10 ) 07/21/2023 1:11 PM CDT Body Mass Index 29.56 07/21/2023 1:11 PM CDT Plan of Treatment Not on file Insurance [facility] PL[facility] Care Teams Book Critic Relationship Specialty Start Date End Date Mingo Ellison MD [address] [facility] [place] [address] PCP - General 05/11/08
--- OUTSIDE RECORDS SUMMARY | 2024-03-22 10:19 | XMS_ITS | Encounter Summary ---
Author Organization [facility] Healthcare Address [address] [place] [address] Care Team Providers Care Senior Tableau Developer Name Role Phone Mingo Ellison MD Primary Care Provider +1- [phone] Encounter Details Date Type Department Care Team (Late st Contact Info) Description 05/10/2014 4:33 PM TEMPLATE MAKER - 05/10/2014 11:59 PM TEMPLATE MAKER Hospital Encounter [facility] Teddy Nunes MD [address] [place] [address] [address] [address] Carlos Fox, DYL[place] [address] [place] [address] Abdominal pain, left lower quadrant; Diverticulitis of colon Social History Tobacco Use Types Packs/Day Years Used Date Smoking Tobacco: Never Assessed Alcohol Use Standard Drinks/Week Comments No 0 (1 standard drink = 0.6 oz pur e alcohol) Sex and Gender Information Value Date Recorded Sex Assigned at Not on file 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 Gender Identity Not on file Sexual Orientation Not on file documented as of this encounter Plan of Treatment Not on file documented as of this encounter Procedures Procedure Name Priority Date/Time Associated Diagnosis Comments CT ABDOMEN PELVIS WO CONTRAST Routine 05/10/2014 5:31 PM TEMPLATE MAKER documented in this encounter Results * CT Abdomen Pelvis WO Contrast (05/10/2014 5:31 PM TEMPLATE MAKER) Anatomical Region Laterality Modality Body N/A Computed Tomogra phy 05/10/2014 5:31 PM TEMPLATE MAKER Narrative 05/11/2014 6:22 AM TEMPLATE MAKER vm CT Abd/[place] ?[id number] ??Acc#: ??[id number] DATE OF EXAM: ??May 10 2014 CLINICAL HISTORY: Left lower quadrant abdominal pain. RESULT: PROTOCOL: ??Helically acquired axial images were obtained from the dome of the diaphragm to the pubic symphysis without contrast. FINDINGS: ??The unenhanced solid parenchymal organs are unremarkable. ??The small and large bowel are nondilated. ?..colonic diverticulosis is present. ??There is a focally inflamed diverticulum along the antimesenteric margin of the proximal sigmoid colon. ??This is consistent with mild acute diverticulitis. ??There is no evidence of extraluminal fluid collection to suggest abscess. ??There is no evidence of free fluid or air. ??The proximal bowel is nondilated. The pelvic contents are unremarkable. ??The lung bases are clear. IMPRESSION: 1. FOCAL DIVERTICULITIS OF THE PROXIMAL SIGMOID COLON. 2. NO EVIDENCE OF ABSCESS OR FREE PERFORATION. 3. OTHERWISE NORMAL UNENHANCED CT OF THE ABDOMEN AND PELVIS. An attempt was made to contact Dr. Teddy Garza who the covering physician for the ordering physician restaurant assistant, Carlos Fox. ??Call was put through to the exchange at 1745 hours. ??As of 1800 hours, no call back has been received. Report was eventually communicated to Dr. Garza at 1850 hrs. Interpreting Physician: ??DR BEATA VERA M.D. ??Read on: ??May 10 2014 5:56P Transcribed by: ??velma ??On: May 10 2014 ??6:54P Approved Electronically by: ??JODY Gonsalves, DR COTA ??on: ??May 11 2014 6:22A Attending: ??CARLOS FOX Requesting: ??CARLOS FOX Requesting Fax: ??-- Attending Fax: ??-- Attending ID: ?? Requesting ID: ?? Report To 1 ID: ??[id number] Report To 1 Name: ??CARLOS FOX Report To 1 FAX: ??-- NextGen Order #: Procedure Note Provider, MD Brian - 07/07/[address] Abd/[place] [id number] Acc#: [id number] DATE OF EXAM: May 10 2014 CLINICAL HISTORY: Left lower quadrant abdominal pain. RESULT: PROTOCOL: Helically acquired axial images were obtained from the dome ofthe diaphragm to the pubic symphysis without contrast. FINDINGS: The unenhanced solid parenchymal organs are unremarkable. Thesmall and large bowel are nondilated. ..colonic diverticulosis ispresent. There is a focally inflamed diverticulum along theantimesenteric margin of the proximal sigmoid colon. This is consistentwith mild acute diverticulitis. There is no evidence of extraluminalfluid collection to suggest abscess. There is no evidence of free fluidor air. The proximal bowel is nondilated. The pelvic contents areunremarkable. The lung bases are clear. IMPRESSION: 1. FOCAL DIVERTICULITIS OF THE PROXIMAL SIGMOID COLON. 2. NO EVIDENCE OF ABSCESS OR FREE PERFORATION. 3. OTHERWISE NORMAL UNENHANCED CT OF THE ABDOMEN AND PELVIS. An attemptwas made to contact Dr. Teddy Garza who the covering physician for theordering physician restaurant assistant, Carlos Fox. Call was put through to theworden at 1745 hours. As of 1800 hours, no call back has been received.Report was eventually communicated to Dr. Garza at 1850 hrs. Interpreting Physician: DR BEATA VERA M.D. Read on: May 10 20145:56P Transcribed by: velma On: May 10 2014 6:54P Approved Electronically by: JODY Gonsalves, DR COTA on: May 11 20146:22A Attending: CARLOS FOX Requesting: CARLOS FOX Requesting Fax: -- Attending Fax: -- Attending ID: Requesting ID: Report To 1 ID: [id number] Report To 1 Name: CARLOS FOX Report To 1 FAX: -- NextGen Order #: us Historical Provider MD HENDERSON CT PROCEDURES Final R esult documented in this encounter Visit Diagnoses Diagnosis Abdominal pain, left lower quadrant Diverticulitis of colon Diverticulitis of colon (without mention of hemorrhage) documented in this encounter Care Teams Senior Tableau Developer Relationship Specialty Start Date End Date Mingo Ellison MD 1 [facility] [place] [address] PCP - General 05/11/08 documented as of this encounter
--- OUTSIDE RECORDS SUMMARY | 2024-03-22 10:19 | XMS_ITS | Encounter Summary ---
Author Organization [facility] Healthcare Address [facility] [place] [address] Care Team Providers Care Wire Inserter Name Role Phone Mingo Ellison MD Primary Care Provider +1- [phone] Encounter Details Date Type Department Care Team (Late st Contact Info) Description 05/18/2013 1:09 PM FRONT END DRIVER - 05/18/2013 11:59 PM FRONT END DRIVER Hospital Encounter [facility] Jose Acosta MD [address] [place] [address] Lumbosacral spondylosis without myelopathy Social History Tobacco Use Types Packs/Day Years Used Date Smoking Tobacco: Never Assessed Alcohol Use Standard Drinks/Week Comments No 0 (1 standard drink = 0.6 oz pur e alcohol) Sex and Gender Information Value Date Recorded Sex Assigned at Not on file 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 Sex 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 Gender Identity Not on file Sexual Orientation Not on file documented as of this encounter Plan of Treatment Not on file documented as of this encounter Procedures Procedure Name Priority Date/Time Associated Diagnosis Comments XR SACRUM COCCYX 2 OR MORE VIEWS Routine 05/18/2013 2:05 PM FRONT END DRIVER XR SPINE LUMBAR ROUTINE Routine 05/18/2013 1:48 PM FRONT END DRIVER documented in this encounter Results * XR Sacrum And Coccyx 2 View (05/18/2013 2:05 PM FRONT END DRIVER) Anatomical Region Laterality Modality Pelvis, Body N/A Radiographic Cinthya ging 05/18/2013 2:05 PM FRONT END DRIVER Narrative 05/18/2013 3:54 PM FRONT END DRIVER XR Sacrum/Coccyx ?[id number] ??Acc#: ??[id number] DATE OF EXAM: ??May ??2013 CLINICAL HISTORY: Right lower pain. RESULT: AP and lateral views of the sacrum and coccyx were obtained. ??The sacral auriculate lines are intact. ??The sacroiliac joints are neither widened nor displaced. ??No acute sacral or coccygeal fracture is noted. IMPRESSION: NO ACUTE SACRAL OR COCCYGEAL FRACTURE. Interpreting Physician: ??NUZHAT JACQUES M.D. ??Read on: ??May ??2013 3:52P Transcribed by: ??ylchad ??On: May ??2013 ??3:52P Approved Electronically by: ??NUZHAT JACQUES M.D. ??on: ??May ??2013 3:54P Ordering DR: ADRIANA SALAMANCA Attending DR: CARLOS SALAMANCA Procedure Note Provider, MD Brian - 07/07/2016 XR Sacrum/Coccyx [id number] Acc#: [id number] DATE OF EXAM: May 18 2013 CLINICAL HISTORY: Right lower pain. RESULT: AP and lateral views of the sacrum and coccyx were obtained. The sacralauriculate lines are intact. The sacroiliac joints are neither widenednor displaced. No acute sacral or coccygeal fracture is noted. IMPRESSION: NO ACUTE SACRAL OR COCCYGEAL FRACTURE. Interpreting Physician: NUZHAT JACQUES M.D. Read on: May 18 20133:52P Transcribed by: chad On: May 18 2013 3:52P Approved Electronically by: NUZHAT JACQUES M.D. on: May 18 20133:54P Ordering DR: ADRIANA SALAMANCA Attending DR: CARLOS SALAMANCA us Historical Provider MD HENDERSON XR PROCEDURES Final R esult * XR Lumbar Spine Routine (05/18/2013 1:48 PM FRONT END DRIVER) Anatomical Region Laterality Modality L-spine N/A Radiographic Cinthya ging 05/18/2013 1:48 PM FRONT END DRIVER Narrative 05/18/2013 3:54 PM FRONT END DRIVER XR Lumbar Spine Routine ??[id number] ??Acc#: ??[id number] XR LUMBAR SPINE FLEX/EX ?[id number] ??Acc#: ??[id number] DATE OF EXAM: ??May ??2013 CLINICAL HISTORY: Right lower pain. RESULT: AP, lateral, flexion, extension, oblique and L5/S1 views of the lumbar spine were obtained. ??Vertebral body height and bony alignment are maintained. ??Mild disc space narrowing is noted at L5/S1. ??Facet arthropathy is seen in the lower lumbar region. ??No subluxation developes with flexion or extension. ??No pars defects are seen. IMPRESSION: 1. ??NO ACUTE FRACTURE OR SUBLUXATION. 2. ??MILD LUMBAR SPONDYLOSIS. Interpreting Physician: ??NUZHAT JACQUES M.D. ??Read on: ??May ??2013 3:49P Transcribed by: ??ylc ??On: May ??2013 ??3:49P Approved Electronically by: ??NUZHAT JACQUES M.D. ??on: ??May ??2013 3:54P Ordering DR: ADRIANA SALAMANCA Attending DR: CARLOS SALAMANCA Procedure Note Provider, Brian, - 07/07/2016 XR Lumbar Spine Routine [id number] Acc#: [id number] XR LUMBAR SPINE FLEX/EX [id number] Acc#: [id number] DATE OF EXAM: May 18 2013 CLINICAL HISTORY: Right lower pain. RESULT: AP, lateral, flexion, extension, oblique and L5/S1 views of the lumbarspine were obtained. Vertebral body height and bony alignment aremaintained. Mild disc space narrowing is noted at L5/S1. Facetarthropathy is seen in the lower lumbar region. No subluxation developeswith flexion or extension. No pars defects are seen. IMPRESSION: 1. NO ACUTE FRACTURE OR SUBLUXATION. 2. MILD LUMBAR SPONDYLOSIS. Interpreting Physician: NUZHAT JACQUES M.D. Read on: May 18 20133:49P Transcribed by: bennett On: May 18 2013 3:49P Approved Electronically by: NUZHAT JACQUES M.D. on: May 18 20133:54P Ordering DR: ADRIANA SALAMANCA Attending DR: CARLOS SALAMANCA Historical Provider MD HENDERSON XR PROCEDURES Final R esult documented in this encounter Visit Diagnoses Diagnosis Lumbosacral spondylosis without myelopathy documented in this encounter Care Teams Wire Inserter Relationship Specialty Start Date End Date Mingo Ellison MD [address] [facility] [address] PCP - General 05/11/08 documented as of this encounter
--- OUTSIDE RECORDS SUMMARY | 2024-03-22 10:19 | XMS_ITS | Encounter Summary ---
Author Organization 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
--- OUTSIDE RECORDS SUMMARY | 2024-03-22 10:19 | XMS_ITS | Encounter Summary ---
Author Organization [facility] Healthcare Address [address] [place] [address] Care Team Providers Care Swing Ride Operator Name Role Phone Mingo Ellison MD Primary Care Provider +1- [phone] Encounter Details Date Type Department Care Team (Late st Contact Info) Description 07/21/2023 1:05 PM CDT Ancillary Procedure [facility] at [address] [id number] Social History Tobacco Use Types Packs/Day Years Used Date Smoking Tobacco: Never Alcohol Use Standard Drinks/Week Comments No 0 (1 standard drink = 0.6 oz pur e alcohol) Sex and Gender Information Value Date Recorded Sex Assigned at Not on file 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 Gender Identity Not on file Sexual Orientation Not on file documented as of this encounter Plan of Treatment Not on file documented as of this encounter Procedures Procedure Name Priority Date/Time Associated Diagnosis Comments XR FINGER THUMB RIGHT Schedule Routine, Read Routine (OP Routine) 07/21/2023 1:06 PM CDT Trigger finger of right thumb documented in this encounter Results * XR Finger Thumb Right Minimum 2 Views (07/21/2023 1:06 PM CDT) Anatomical Region Laterality Modality Upper Extremities, Hand, Fingers Right Digital Radiography Narrative 07/21/2023 1:23 PM CDT Three views of the right thumb are negative for fracture dislocation or osseous lesion. ??Moderate arthritic changes noted at the CMC joint. ??Mild arthritic changes noted at the IP and MCP joint of the thumb. ??Soft tissues are unremarkable. us Carlos RICHARDSON IMG XR PROCEDURES Final Res ult documented in this encounter Visit Diagnoses Not on filedocumented in this encounter Care Teams Swing Ride Operator Relationship Specialty Start Date End Date Mingo Ellison MD [address] [place] [address] PCP - General 05/11/08 documented as of this encounter
--- OUTSIDE RECORDS SUMMARY | 2024-03-22 10:19 | XMS_ITS | Encounter Summary ---
Author Organization [facility] Healthcare Address [address] [place] [id number] Care Team Providers Care Steel Layout Worker Name Role Phone Mingo Ellison MD Primary Care Provider +1- [phone] Reason for Referral * Procedure (Routine) - Pending Review Specialty Diagnoses / Procedures Referred By Contdeedee t Referred To Contact Diagnoses Trigger finger of right thumb Procedures Hand / Upper Extremity Arthrocentesis: R thumb A1 Carlos Montoya PA [address] [facility] [address] [place] [address] Phone: tel: fax: [facility] Referral ID Status Reason Start Date Expiration Date V isits Requested Visits Authorized [id number] Pending Review 07/21/2023 08/19/2024 1 1 Reason for Visit * Reason Comments Pain Encounter Details Date Type Department Care Team (Late st Contact Info) Description 07/21/2023 1:15 PM CDT Office Visit [facility] Orthopedic and Sports Medicine [address] [place] [phone] Carlos Montoya PA [address] [facility] [address] [id number] Trigger finger of right thumb (Primary Dx) Social History Tobacco Use Types Packs/Day Years Used Date Smoking Tobacco: Never Tobacco Cessation:Counseling Given: Not Answered Alcohol Use Standard Drinks/Week Comments No 0 (1 standard drink = 0.6 oz pur e alcohol) Sex and Gender Information Value Date Recorded Sex Assigned at Not on file 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 NEW PATIENT VISIT Subjective CHIEF COMPLAINT He had concerns including Pain of the Right Thumb. HISTORY OF PRESENT ILLNESS Patient is a 58-year-old gentleman here today for evaluation of right thumb pain. Patient reports aproximally 4 months ago he had triggering of the thumb Medrol Dosepak a proximally 2 months ago seems to have knee pain and triggering however he still has a grinding sensation. Denies any pain at this time. Pain Assessment Pain Assessment: 0-10 Pain Score: 1 PAST MEDCIAL HISTORY He has a past medical history of OTHER MEDICAL. PAST SURGICAL HISTORY He has a past surgical history that includes Carpal tunnel release (2001); knee arthroscopy (Right,2009); and Carpal tunnel release (Bilateral, 2005). MEDICATIONS He currently has no medications in their medication list. ALLERGIES He is allergic to clarithromycin. SOCIAL HISTORY He reports that he has never smoked. He does not have any smokeless tobacco history on file. No alcohol history on file. FAMILY HISTORY His family history is not on file. REVIEW OF SYSTEMS Review of Systems Constitutional: Negative for chills, fatigue and fever. HENT: Negative for sore throat. Respiratory: Negative for cough and shortness of breath. Cardiovascular: Negative for chest pain. Gastrointestinal: Negative for constipation, nausea and vomiting. Neurological: Negative for dizziness, light-headedness and headaches. Objective PHYSICAL EXAM BP 154/84 Pulse 64 Ht 177.8 cm (5' 10 ) Wt 93.4 kg (206 lb) BMI 29.56 kg/m?? Right hand/wrist Inspection The patient has normal inspection of the right hand and wrist. Palpation Tenderness: present. The tenderness is located in the thumb. Range of motion The patient has normal range of motion of the right wrist. Th patient has normal range of motion of the fingers on the right hand. Strength The patient has 5/5 strength throughout the right hand and wrist. Neurovascular The patient has normal vascular on the right side of their body. The patient has normal sensation on the right side of their body. Test Trigger: positive Left hand/wrist The patient has normal inspection, palpation, range of motion, strength, and stability of the left hand and wrist. REVIEW OF X-RAYS/STUDIES/LABS XR Finger Thumb Right Minimum 2 Views Three views of the right thumb are negative for fracture dislocation or osseous lesion. Moderate arthritic changes noted at the CMC joint. Mild arthritic changes noted at the IP and MCP joint of the thumb. Soft tissues are unremarkable. Assessment/Plan Sadiq was seen today for pain. Diagnoses and all orders for this visit: Chronic thumb pain, right - XR Finger Thumb Right Minimum 2 Views Hand / Upper Extremity Arthrocentesis: R thumb A1 Performed by: Carlos Montoya PA Authorized by: Carlos Montoya PA Hand/Upper Extremity Injection: Consent Given by: Patient Site marked: the procedure site was marked Verbal consent obtained?: Yes Supporting Documentation: Indications: Pain, tendon swelling and therapeutic Procedure Details: Condition: trigger finger Location: Thumb Site: R thumb A1 Prep: patient was prepped and draped in usual sterile fashion Needle Size: 25 G Approach: Volar Ultrasound guidance: No Medications: 0.5 mL lidocaine (PF) 20 mg/mL (2 %); 40 mg methylPREDNISolone acetate 80 mg/mL Patient tolerance: Patient tolerated the procedure well with no immediate complications PLAN I reviewed x-ray and exam findings today with the patient. Discussed treatment options for trigger finger including bracing, oral medication, topical medication, injection therapy and surgery. Patient would like to proceed with injection therapy today. Injection was administered today, patient tolerated the injection well. Post-injection instructions were provided to the patient today. We will plan for him to follow up as needed. If he would like to pursue feed with surgical discussion he can schedule a consultation with Dr. Woods. All questions were addressed today and the patient was instructed to call the office with any questions or concerns. There may be grammatical errors in this note due to use of voice recognition software. DYLAN Sandoval Cosigned by Eron Woods MD at 07/22/2023 8:00 AM CDT documented in this encounter Plan of Treatment Not on file documented as of this encounter Procedures Procedure Name Priority Date/Time Associated Diagnosis Comments OK INJECTION 1 TENDON SHEATH/LIGAMENT APONEUROSIS Routine 07/21/2023 1:15 PM CDT Trigger finger of right thumb XR FINGER THUMB RIGHT Schedule Routine, Read Routine (OP Routine) 07/21/2023 1:06 PM CDT Trigger finger of right thumb documented in this encounter Results * OK INJECTION 1 TENDON SHEATH/LIGAMENT APONEUROSIS (07/21/2023 1:15 PM CDT) Narrative Eron Woods MD - 07/21/2023 1:15 PM CDT Carlos Montoya PA ? 07/21/2023 ??2:12 PM Hand / Upper Extremity Arthrocentesis: R thumb A1 Performed by: Carlos Montoya PA Authorized by: Carlos Montoya PA ?? Hand/Upper Extremity Injection: ??Consent Given by: ??Patient ??Site marked: the procedure site was marked ?Verbal consent obtained?: Yes ?? Supporting Documentation: ??Indications: ??Pain, tendon swelling and therapeutic Procedure Details: ??Condition: trigger finger ?Location: ??Thumb ??Site: ??R thumb A1 ??Prep: patient was prepped and draped in usual sterile fashion ?Needle Size: ??25 G ??Approach: ??Volar ??Ultrasound guidance: No ?Medications: ??0.5 mL lidocaine (PF) 20 mg/mL (2 %); 40 mg methylPREDNISolone acetate 80 mg/mL ??Patient tolerance: ??Patient tolerated the procedure well with no immediate complications Carlos [facility] IN [facility]/BEDSIDE ORDERABLE S Final Result * XR Finger Thumb Right Minimum 2 [...] of the thumb. ??Soft tissues are unremarkable. Carlos RICHARDSON IMG XR PROCEDURES Final Res ult documented in this encounter Visit Diagnoses Diagnosis Trigger finger of right thumb- Primary documented in this encounter Administered Medications Inactive Administered Medications - up to 3 most recent administrations Medication Order MAR Action Action Date Dose Rate Site lidocaine (PF) (XYLOCAINE) 20 mg/mL (2 %) preservative free injection 0.5 mL 0.5 mL, One-Time Injection, Starting on Wed07/21/23 at 1315, For 1 doseIndications:Trigger finger of right thumb Given 07/21/2023 1:15 PM CDT 0.5 mL Right Thumb methylPREDNISolone acetate (DEPO-medrol) injection 40 mg 40 mg, intra-articular, One-Time Injection, Starting on Wed07/21/23 at 1315, For 1 doseIndications:Trigger finger of right thumb Given 07/21/2023 1:15 PM CDT 40 mg Right Thumb documented in this encounter Care Teams Steel Layout Worker Relationship Specialty Start Date End Date Mingo Ellison MD [address] [facility] [place] [address] PCP - General 2/27/09 documented as of this encounter
--- OUTSIDE RECORDS SUMMARY | 2024-03-22 10:19 | XMS_ITS | Clinical Summary ---
Author Organization [facility] Medical Office Building [address] Address [address] [place] [address] Care Team Providers Care Machine Shorthand Teacher Name Role Phone Mingo Ellison MD Primary Care Provider +1- [phone] Allergies Active Allergy Reactions Criticality Noted Date Comments Clarithromycin Stomach upset Reaction: GI problems, Medications No known medications Active Problems No known active problems Surgical History Surgery Date Site/Laterality Comments CARPAL TUNNEL RELEASE 2001 Carpal tunnel release KNEE ARTHROSCOPY 2010 Right Arthroscopy knee CARPAL TUNNEL RELEASE 2006 Bilateral Carpal tunnel release Medical History Medical History Date Comments Hx Other Medical neuropathy hand s; Laterality: bilateral Social History Tobacco Use Types Packs/Day Years Used Date Smoking Tobacco: Never Tobacco Cessation:Counseling Given: Not Answered Alcohol Use Standard Drinks/Week Comments No 0 (1 standard drink = 0.6 oz pur e alcohol) Sex and Gender Information Value Date Recorded Sex Assigned at Not on file 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 Gender Identity Not on file Sexual Orientation Not on file Obstetrics History Last Filed Vital Signs Vital Sign Reading [...] 07/21/2023 1:11 PM CDT Plan of Treatment Health Maintenance Due Date Last Done Comments Colon Cancer Screening-Colonoscopy 1965 Depression Screening 1965 Hepatitis C Screening 1965 Prostate Cancer Screening-PSA 1965 DTaP/Tdap/Td Vaccine (1 - Tdap) 1976 Hepatitis B Screening 1983 Regular Well Visit/Exam 18-64 1983 Zoster Vaccine (1 of 2) 2015 Influenza Vaccine (#1) 2023 0, 02/20/2016 Pneumococcal vaccine <65 Aged Out No longer eligible based on patient's age to complete this topic Insurance Care Teams Machine Shorthand Teacher Relationship Specialty Start Date End Date Mingo Ellison MD [address] [facility] [address] PCP - General 05/11/08
== END 2024-03-15 15:16 | disposition home or self-care (01) ==
PROVIDERS: Emergency Provider Nurse Practitioner; PCP Physician Assistant
DX: J32.9 Chronic sinusitis, unspecified (principal)
CPT/HCPCS: 71046; 99213; G0463